=== PATIENT | female | born 1955 | race Caucasian/White ===

== ENCOUNTER 2018-03-15 17:32 | Emergency (ER) | payer BC ==
[2018-03-15 17:52] VITALS: BP 127/88
[2018-03-15] MEDS ORDERED: Penicillin VK TAB* 250 MG PO ONE (18:02)
--- NOTE | 2018-03-15 18:08 | UC ---
Dental HPI - HPI Summary HPI Summary: 62 yo female with worsening dental pain and swelling x 2 days no fever has appt at dental on 03/20 - History of Current Complaint Chief Complaint: UCDentalProblem Stated Complaint: DENTAL PAIN Time Seen by Provider: 03/15/18 17:45 Hx Obtained From: Patient Hx Last Menstrual Period: 2006 Onset/Duration: Gradual Onset, Lasting Days Severity: Moderate Pain Intensity: 6 Pain Scale Used: 0-10 Numeric Aggravating Factor(s): Heat, Cold, Chewing Alleviating Factor(s): Nothing Related History: Previous Dental Care on Same Tooth, Swelling - Allergies/Home Medications Allergies/Adverse Reactions: Allergies Allergy/AdvReac Type Severity Reaction Status Date / Time levofloxacin [From Levaquin] Allergy Altered Verified 03/15/18 17:54 Mental Status Sulfa (Sulfonamide Allergy Altered Verified 03/15/18 17:54 Antibiotics) Mental Status tetracycline Allergy See Comment Verified 03/15/18 17:54 Home Medications: Home Medications Budesonide/Formote 160/4.5(NF) [Symbicort 160/4.5 (NF)] 2 puff INH BID 03/15/18 [History Confirmed 03/15/18] PMH/Surg Hx/FS Hx/Imm Hx Previously Healthy: Yes Respiratory History: COPD - Surgical History Surgical History: Yes Surgery Procedure, Year, and Place: Cholecystectomy. Tubal Ligation. Rectal fissure repair--1984 - Family History Known Family History: Positive: Cardiac Disease, Hypertension, Diabetes - Social History Alcohol Use: None Substance Use Type: None Smoking Status (MU): Current Every Day Smoker Type: Cigarettes Amount Used/How Often: 1 PPD Length of Time of Smoking/Using Tobacco: 40-45 YRS Have You Smoked in the Last Year: Yes Cessation Counseling: Patient Advised to Stop Review of Systems Constitutional: Negative Skin: Negative Eyes: Negative ENT: Dental Pain Respiratory: Negative Cardiovascular: Negative Gastrointestinal: Negative Genitourinary: Negative Motor: Negative Neurovascular: Negative Musculoskeletal: Negative Neurological: Negative Psychological: Negative Is Patient Immunocompromised?: No All Other Systems Reviewed And Are Negative: Yes Physical Exam Triage Information Reviewed: Yes Appearance: Well-Appearing, No Pain Distress, Well-Nourished Vital Signs: Initial Vital Signs Temp 98.8 F 03/15/18 17:50 Pulse 81 03/15/18 17:50 Resp 18 03/15/18 17:50 BP 127/88 03/15/18 17:50 Pulse Ox 99 03/15/18 17:50 Vital Signs Reviewed: Yes Eyes: Positive: Conjunctiva Clear ENT: Negative: Hearing grossly normal, Nasal congestion, Nasal drainage, Trismus , Muffled voice, Hoarse voice Dental: Positive: Gross Decay/Caries @ - mnay teeth rotted to gum line, Other: - abysmal dentition Neck: Positive: Supple, Nontender Respiratory: Positive: Chest non-tender, Lungs clear, Normal breath sounds Cardiovascular: Positive: RRR, No Murmur, Pulses Normal Musculoskeletal: Positive: ROM Intact, No Edema Neurological: Positive: Alert Psychological Exam: Normal Skin Exam: Normal Dental Complaint Course/Dx - Differential Dx/Diagnosis Provider Diagnoses: dental abscess Discharge - Sign-Out/Discharge Documenting (check all that apply): Discharge/Admit/Transfer - Discharge Plan Condition: Stable Disposition: HOME Prescriptions: Penicillin VK 500 MG TAB(NF) [Penicillin VK 500 mg Tab] 500 mg PO QID #28 tab Patient Education Materials: Dental Abscess (ED) Referrals: Maye Barrios MD [Primary Care Provider] - Additional Instructions: tylenol or aleve for pain to er for worsening symptoms see dentist 03/20 as planned - Billing Disposition and Condition Condition: STABLE Disposition: HOME Images Dental: 1 - swollen /tooth rotted to gum line
== END 2018-03-15 18:17 | disposition home or self-care (01) ==
LOC: UCEAST 17:32
DX: K04.7 Periapical abscess without sinus (principal); J44.9 Chronic obstructive pulmonary disease, unspecified; Z88.1 Allergy status to other antibiotic agents; Z88.2 Allergy status to sulfonamides; F17.210 Nicotine dependence, cigarettes, uncomplicated
CPT/HCPCS: 99212; A9270-GY; G0463

== ENCOUNTER 2018-05-15 18:20 | Emergency (ER) | payer BC ==
[2018-05-15 18:34] VITALS: BP 122/86
--- NOTE | 2018-05-15 20:04 | UC ---
Olamide Enamorado Emily, scribed for Heriberto Houser MD on 05/15/18 at 1837 . Throat Pain/Nasal Junaid HPI - HPI Summary HPI Summary: This patient is a 62 year old F presenting to critical access hospital care accompanied by with a chief complaint of sore throat that began 3 days ago. The patient rates the pain 0/10 in severity. Symptoms aggravated by nothing. Symptoms alleviated by nothing. Patient reports productive cough (yellow sputum ) and nasal congestion. Patient denies fever. Allergies reviewed. Medications reviewed. - History of Current Complaint Stated Complaint: SINUS CONGESTION Time Seen by Provider: 05/15/18 18:28 Hx Obtained From: Patient Hx Last Menstrual Period: POST ?: No Onset/Duration: Sudden Onset, Lasting Days, Still Present Severity: Mild Pain Intensity: 0 Pain Scale Used: 0-10 Numeric Cough: Productive Associated Signs & Symptoms: Positive: Other - Positive productive cough ( yellow sputum) and nasal congestion. Negative fever - Allergies/Home Medications Allergies/Adverse Reactions: Allergies Allergy/AdvReac Type Severity Reaction Status Date / Time levofloxacin [From Levaquin] Allergy Altered Verified 05/15/18 18:35 Mental Status Sulfa (Sulfonamide Allergy Altered Verified 05/15/18 18:35 Antibiotics) Mental Status tetracycline Allergy See Comment Verified 05/15/18 18:35 Home Medications: Home Medications Ketorolac 0.5% OPHTH (NF) 1 drop OPHTHALMIC QID 05/15/18 [History Confirmed 01/01] Tobramycin 0.3% OPHTH.LEIGHTON* 1 drop OPHTHALMIC QID 05/15/18 [History Confirmed 01/01] prednisoLONE 1% OPHTH.SUSP* [Pred Forte 1%*] 1 drop .SEE ORDER QID 05/15/18 [ History Confirmed 05/15/18] PMH/Surg Hx/FS Hx/Imm Hx Previously Healthy: No Endocrine History: Other Other Endocrine History: Negative diabetes Respiratory History: COPD - Surgical History Surgical History: Yes Surgery Procedure, Year, and Place: Cholecystectomy. Tubal Ligation. Rectal fissure repair--1984 - Family History Known Family History: Positive: Cardiac Disease, Hypertension, Diabetes - Social History Occupation: Retired Lives: With Family Alcohol Use: None Substance Use Type: None Smoking Status (MU): Current Every Day Smoker Type: Cigarettes Amount Used/How Often: 1 PPD Length of Time of Smoking/Using Tobacco: 40-45 YRS Have You Smoked in the Last Year: Yes Review of Systems Constitutional: Other - Negative fever ENT: Sore Throat, Other - Positive nasal congestion Respiratory: Cough All Other Systems Reviewed And Are Negative: Yes Physical Exam - Summary Physical Exam Summary: General: well-appearing, no pain distress Skin: warm, color reflects adequate perfusion, dry Head: normal Eyes: EOMI, AMANDA ENT: positive rhinorrhea Neck: supple, nontender Respiratory: scattered wheezes, breath sounds present Cardiovascular: RRR Abdomen: soft, nontender Bowel: present Musculoskeletal: normal, strength/ROM intact Neurological: sensory/motor intact, A&O x3 Psychological: affect/mood appropriate Triage Information Reviewed: Yes Vital Signs: Initial Vital Signs Temp 97.1 F 05/15/18 18:26 Pulse 83 05/15/18 18:26 Resp 18 05/15/18 18:26 BP 122/86 05/15/18 18:26 Pulse Ox 95 05/15/18 18:26 Vital Signs Reviewed: Yes Throat Pain/Nasal Course/Dx - Course Course Of Treatment: DUE TO SINUSITIS EXACERBATING THE COPD, WILL TREAT WITH ABX. THE PATIENT ASKED TO BE TREATED WITH PENICILLIN SHE TOLERATES PENICILLIN WELL. I DISCUSSED AUGMENTIN WILL GIVE BROADER BACTERIAL COVERAGE. RX AUGMENTIN. I DISCUSSED PREDNISONE RX FOR THE COPD; THE PATIENT DECLINED. F/U PMD; RECHECK SOONER IF WORSE. - Differential Dx/Diagnosis Provider Diagnoses: SINUSITIS. COPD EXACERBATION Discharge - Sign-Out/Discharge Documenting (check all that apply): Discharge/Admit/Transfer - Discharge Plan Condition: Stable Disposition: HOME Prescriptions: Amoxicillin/Clavulanate TAB* [Augmentin TAB 875*] 875 mg PO BID #20 tab Patient Education Materials: Sinusitis (ED) Referrals: Maye Barrios MD [Primary Care Provider] - Additional Instructions: FOLLOW UP WITH YOUR DOCTOR. GET RECHECKED FOR ANY WORSENING OF YOUR CONDITION OR QUESTIONS OR CONCERNS. - Billing Disposition and Condition Condition: STABLE Disposition: Home The documentation as recorded by the Olamide wei Emily accurately reflects the service I personally performed and the decisions made by me, Heriberto Houser MD.
== END 2018-05-15 18:51 | disposition home or self-care (01) ==
LOC: UCEAST 18:20
DX: J32.9 Chronic sinusitis, unspecified (principal); J44.9 Chronic obstructive pulmonary disease, unspecified; J02.9 Acute pharyngitis, unspecified; F17.210 Nicotine dependence, cigarettes, uncomplicated; Z88.1 Allergy status to other antibiotic agents; Z88.2 Allergy status to sulfonamides
CPT/HCPCS: 99212; G0463

== ENCOUNTER 2019-01-10 11:08 | Emergency (ER) | payer BC ==
--- NOTE | 2019-01-10 13:17 | UC ---
Respiratory Complaint HPI - HPI Summary HPI Summary: 63 y/o female presents to the urgent care c/o nasal congestion w/ body aches, yellowish nasal discharge, productive cough w/ mild wheezing for the past 3 days. Pt reports Hx of COPD. pt states her has been with similar symptoms getting worse for the past 2 weeks. She has been using the inhaler w/o any improvement. She lopez also taken cough drops. Pt has a low grade fever at home the first day. Pain is 3/10. Pt denies SOB, chest pain, abdominal pain, N/V /D. - History of Current Complaint Chief Complaint: UCRespiratory Stated Complaint: URI Time Seen by Provider: 01/10/19 13:14 Hx Obtained From: Patient Hx Last Menstrual Period: POST ?: No Onset/Duration: Gradual Onset, Lasting Days - 3 days, Still Present, Worse Since - mild wheezing since yesterday Timing: Intermittent Episodes Severity Initially: Mild Severity Currently: Moderate Pain Intensity: 4 Pain Scale Used: 0-10 Numeric Character: Cough: Productive, Sputum Description: - yellowish Aggravating Factors: Recumbent Position Alleviating Factors: Bronchodilator Associated Signs And Symptoms: Positive: Chills, Wheezing - mild, URI, Nasal Congestion, Sinus Discomfort. Negative: Dyspnea, Fever - Risk Factors Pulmonary Embolism Risk Factors: Negative Cardiac Risk Factors: Negative Pseudomonas Risk Factors: Negative Tuberculosis Risk Factors: Negative - Allergies/Home Medications Allergies/Adverse Reactions: Allergies Allergy/AdvReac Type Severity Reaction Status Date / Time levofloxacin [From Levaquin] Allergy Altered Verified 01/10/19 11:44 Mental Status Sulfa (Sulfonamide Allergy Altered Verified 01/10/19 11:44 Antibiotics) Mental Status tetracycline AdvReac See Comment Verified 01/10/19 11:44 PMH/Surg Hx/FS Hx/Imm Hx Previously Healthy: Yes Respiratory History: COPD - Surgical History Surgical History: Yes Surgery Procedure, Year, and Place: Cholecystectomy. Tubal Ligation. Rectal fissure repair--1984 - Family History Known Family History: Positive: Cardiac Disease, Hypertension, Diabetes - Social History Occupation: Retired Lives: With Family Alcohol Use: None Substance Use Type: None Smoking Status (MU): Current Every Day Smoker Type: Cigarettes Amount Used/How Often: 1 PPD Length of Time of Smoking/Using Tobacco: 40-45 YRS Have You Smoked in the Last Year: Yes Review of Systems All Other Systems Reviewed And Are Negative: Yes Constitutional: Positive: Negative Skin: Positive: Negative Eyes: Positive: Negative ENT: Positive: Nasal Discharge - yellowish, Sinus Congestion, Sinus Pain/ Tenderness Respiratory: Positive: Cough - productive w/ yellowish phlegm, Other - mild wheezig Cardiovascular: Positive: Negative Gastrointestinal: Positive: Negative Genitourinary: Positive: Negative Motor: Positive: Negative Neurovascular: Positive: Negative Musculoskeletal: Positive: Myalgia Neurological: Positive: Negative Psychological: Positive: Negative Is Patient Immunocompromised?: No Physical Exam - Summary Physical Exam Summary: Vital Signs Reviewed: Yes General: well developed, well nourished female sitting in the examining table w/ o any apparent distress Eyes: Positive: Conjunctiva Clear - PERRLA, EOMI, fundi grossly normal ENT: Positive: Normal ENT inspection, Hearing grossly normal, Pharynx normal, Nasal congestion - edematous and erythematous nasal mucosa, Nasal drainage - yellowish drainage, TMs normal. Negative: Tonsillar swelling, Tonsillar exudate Neck: Positive: Supple, Nontender, No Lymphadenopathy Respiratory: no orthopnea or dyspnea. Able to speak in full sentences, no retractions or accessory muscle use, no tripod position, stridor, or head bobbing. Positive breath sounds bilaterally. mild scattered wheezing and rhonchi in the posterior Rt lung, no crackles or rales. Cardiovascular: Positive: RRR, No Murmur, Pulses Normal, Brisk Capillary Refill Abdomen Description: Positive: Nontender, No Organomegaly, Soft. Negative: CVA Tenderness (R), CVA Tenderness (L) Bowel Sounds: Positive: Present Musculoskeletal Exam: Normal Musculoskeletal: Positive: Strength Intact, ROM Intact, No Edema Neurological Exam: Normal Psychological Exam: Normal Skin Exam: Normal Triage Information Reviewed: Yes Vital Signs: Initial Vital Signs Temp 96.7 F 01/10/19 11:41 Pulse 77 01/10/19 11:41 Resp 16 01/10/19 11:41 BP 116/79 01/10/19 11:41 Pulse Ox 97 01/10/19 11:41 UC Diagnostic Evaluation - Laboratory O2 Sat by Pulse Oximetry: 97 Respiratory Course/Dx - Course Course Of Treatment: 63 y/o female presents to the urgent care c/o nasal congestion w/ body aches, yellowish nasal discharge, productive cough w/ mild wheezing for the past 3 days. Pt reports Hx of COPD. pt states her has been with similar symptoms getting worse for the past 2 weeks. She has been using the inhaler w/o any improvement. She lopez also taken cough drops. Pt has a low grade fever at home the first day. Pain is 3/10. Pt denies SOB, chest pain, abdominal pain, N/V/D. Hx obtained. Pt w/ mild scattered wheezes and rhonchi on posterior Rt lung on examination. O2Sat:97%. Rapid inlfuenza A&B: negative. chest X-ray ordered: Impression: No cardiopulmonary disease observed as per radiologist. Pt given a Duoneb Treatment to alleviate symptoms. Pt tolerated well treatment and lungs improved,and wheezing resolved. Patient prescribed amoxicillin PO and advised to increase fluid intake, rest and eat well. The patient was recommended to increase fluid intake. Take medications as recommended. Pt advised to returned to the clinic or f/u w/ her PCP if symptoms do not improve. All D/C instructions explained. Patient understood and agree w / plan of care. Pt left clinic hemodynamically stable , A&OX3 - Differential Dx/Diagnosis Differential Diagnosis/HQI/PQRI: Asthma, Bronchitis, Exacerbation Of COPD, Influenza, Lower Resp Infection, Sinusitis, Other - pneumonia Provider Diagnosis: COPD exacerbation, Sinusitis Discharge - Sign-Out/Discharge Documenting (check all that apply): Patient Departure - D/C home All imaging exams completed and their final reports reviewed: Yes - Discharge Plan Condition: Stable Disposition: HOME Prescriptions: Amoxicillin PO (*) [Amoxicillin 875 MG (*)] 875 mg PO BID #20 tab Patient Education Materials: Sinusitis (ED), COPD (Chronic Obstructive Pulmonary Disease) (ED) Referrals: Maye Barrios MD [Primary Care Provider] - 2 Days Additional Instructions: 1- Take full course of Antibiotic PO as directed. Please take yogurt w/ probiotic or culturelle to protect your GI system 2-Use the Albuterol nebulizer treatment to alleviate wheezing as directed . Increase fluid intake, rest and eat well. 3- If symptoms do not improve or worsen or your develop SOB with fever and severe wheezing please go immediately to the ER further evaluation and treatment. 4- F/u with your PCP in 3 days for further management on your COPD - Billing Disposition and Condition Condition: STABLE Disposition: Home
[2019-01-10] MEDS ORDERED: Albuterol/Ipratropium NEB.SOL* Albuterol 2.5 MG/Ipratropium 0.5 MG 3 ML INH ONE (13:36)
[2019-01-10 13:53] LABS: Influenza A Molecular NEGATIVE (Negative); Influenza B Molecular NEGATIVE (Negative)
[2019-01-10 14:23] VITALS: BP 123/79
== END 2019-01-10 14:36 | disposition home or self-care (01) ==
LOC: UCEAST 11:08
DX: J44.1 Chronic obstructive pulmonary disease with (acute) exacerbation (principal); J32.9 Chronic sinusitis, unspecified; F17.210 Nicotine dependence, cigarettes, uncomplicated; Z88.1 Allergy status to other antibiotic agents; Z88.2 Allergy status to sulfonamides
CPT/HCPCS: 71046; 99212; A9270-GY; G0463

== ENCOUNTER 2019-09-09 11:43 | Emergency (ER) | payer BC, MEDICARE ==
--- OUTSIDE RECORDS SUMMARY | 2019-09-09 11:49 | XMS REPORT | Continuity of Care Document ---
:1955 External Reference #:[id number] Author Name Adia Barry PA (transmitted by agent of provider Umang Abernathy ) Address [address] [place] [address] Care Team Providers Name Role Phone Maye Barrios MD - Internal Medicine Care Team Information Customer Retention Representative [phone] Problems Description No Information Available Social History Type Date Description Comments Sex Unknown Tobacco Use Start: Unknown currently smokes 1/2 Pack Daily Smoking Status Reviewed: 07/23/19 currently smokes 1/2 Pack Daily ETOH Use Denies alcohol use Tobacco Use Start: Unknown Heavy tobacco smoker (more than 10 cigarettes/day) Recreational Drug Use Denies Drug Use Exercise Type/Frequency Exercises sporadically Allergies, Adverse Reactions, Alerts Active Allergies Reaction Severity Comments Date Sulfa Drugs 05/23/2017 Tetracycline 05/23/2017 Medications Active Medications SIG Qnty Indications Ordering Date Provider Amoxicillin/Clavulanat 1 by mouth every 20tabs J01.90 Josemanuel, 08/2019 e Potassium 12 hours for 10 MD Umang 875-125mg days. Tablets Oxygen oxygen J44.9 Arnol eBnson MD 07/26/2018 concentrator. use oxygen 2 l/min via nasal cannula at night. Albuterol Sulfate 1 vial inhaled 270ml Arnol Benson MD 01/18/2018 every 4 hours as 1.25mg/3ML Nebulizer needed for shortness of breath and or wheezing Symbicort 2 puff twice a 30.6gm J44.1 Arnol Benson MD 01/18/2018 160-4.5mcg/Act day Aerosol Spiriva Respimat take 2 puffs once Unknown daily. 2.5mcg/Act Aerosol Proair HFA take 2 puffs Unknown 108(90Base) every 6 hours as mcg/Act Aerosol needed for shortness of breath. Levothyroxine Sodium 1 by mouth every 30tabs Unknown day 50mcg Tablets Immunizations Description No Information Available Vital Signs Date Vital Result Comment 07/24/2019 2:30pm BP Systolic Sitting Left Arm 112 mmHg BP Diastolic Sitting Left Arm 78 mmHg Heart Rate 86 /min Respiratory Rate 18 /min Height 63.5 inches 5'3.50" Weight 173.00 lb BMI (Body Mass Index) 30.2 kg/m2 BSA (Body Surface Area) 1.83 m2 [place] body weight in kilograms 53 kg O2 % BldC Oximetry 94 % 01/15/2019 2:54pm BP Systolic Sitting Right Arm 123 mmHg BP Diastolic Sitting Right Arm 86 mmHg Heart Rate 80 /min Respiratory Rate 16 /min Height 63.5 inches 5'3.50" Weight 173.00 lb BMI (Body Mass Index) 30.2 kg/m2 BSA (Body Surface Area) 1.83 m2 [place] body weight in kilograms 53 kg O2 % BldC Oximetry 92 % Ra Results Description No Information Available Procedures Description No Information Available Medical Devices Description No Information Available Encounters Type Date Location Provider Dx Diagnosis Office Visit 07/24/2019 Pulmonology Adia Barry PA J44.9 Chronic obstructive 2:20p pulmonary disease, unspecified R09.02 Hypoxemia F17.210 Nicotine dependence, cigarettes, uncomplicated 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, bronchus and lung J01.90 Acute sinusitis, unspecified Z71.6 Tobacco abuse counseling Assessments Date Code Description Provider 07/24/2019 J44.9 Chronic obstructive pulmonary disease, Adia Barry PA unspecified 07/24/2019 R09.02 Hypoxemia Adia Barry PA 07/24/2019 F17.210 Nicotine dependence, cigarettes, uncomplicated Adia Barry PA 07/24/2019 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 Avoid pollution, fumes and second hand smoke.Drink at least 10 glasses fluid daily. Is there anything I can do on my own to feel better? ?? Yes. If you smoke, stop. This is the most important thing you can do for your chronic bronchitis or COPD. It does not matter how long you have smoked or how much you smoke. Quitting will slow your disease and help you feel better.You should also get the flu shot every fall and the pneumonia vaccine at least once. Infections like the flu and pneumonia can hurt your lungs. It's important to try to prevent them.Follow up:3 months after PFTR09.02 HypoxemiaComments:Please use the oxygen 2L every night, all night.F17.210 Nicotine dependence, cigarettes, uncomplicatedComments:Patient counseled regarding smoking cessation. Discussed risks of cancer, heart attacks , and strokes associated with tobacco use. Please call your [facility] QUIT line and set a quit date.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, bronchus and lungComments:We will repeat a low dose chest CT in 01/2020.J01.90 Acute sinusitis, unspecifiedNew Medication:Amoxicillin/Clavulanate Potassium 875-125 mg - 1 by mouth every 12 hours for 10 days.Comments:Please take Augmentin twice a day for ten days for a sinus infection. Take a yogurt every day to avoid yeast infection and loose stools.Z71.6 Tobacco abuse counseling Goals 07/24/2019 - Adia Barry PAJ44.9 Chronic obstructive pulmonary disease, unspecifiedMaintain activity level despite shortness of breath. Improve exercise capacity. Reduce frequency andseverity of exacerbations(flare-ups). Prolong survival and improve quality of life. Functional Status Description No Information Available Mental Status Description No Information Available Referrals Description No Information Available
[2019-09-09 11:55] VITALS: BP 126/87
--- NOTE | 2019-09-09 12:07 | UC ---
Dental HPI - HPI Summary HPI Summary: hAS HAD A BROKEN FRONT TOOTH X1 YR AND FEELS FOR PAST MO. HAS HAD INTERMITTENT PAIN. ABLE TO EAT FOOD BUT W/ PAIN. USES OTC MEDS FOR PAIN RELIEF. NOTHING MAKES IT BETTER BUT CERTAIN FOODS MAKE IT PAIN WORSE. DENIES FEVER, LOCK JAW, ROMERO. ALSO C/O SINUS DRAINAGE X 1 WK W/ SICK CONTACTS AT HOME. DOES HAVE TOOTH PAIN BUT UNRELATED. - History of Current Complaint Chief Complaint: UCDentalProblem Stated Complaint: DENTAL CONCERN Time Seen by Provider: 09/09/19 12:01 Hx Obtained From: Patient Hx Last Menstrual Period: POST ?: No Pain Intensity: 8 Pain Scale Used: 0-10 Numeric Aggravating Factor(s): Chewing Alleviating Factor(s): OTC Meds Related History: Previous Dental Care on Same Tooth - Allergies/Home Medications Allergies/Adverse Reactions: Allergies Allergy/AdvReac Type Severity Reaction Status Date / Time levofloxacin [From Levaquin] Allergy Altered Verified 09/09/19 11:50 Mental Status Sulfa (Sulfonamide Allergy Altered Verified 09/09/19 11:50 Antibiotics) Mental Status tetracycline AdvReac See Comment Verified 09/09/19 11:50 Home Medications: Home Medications Levothyroxine TAB* [Synthroid TAB*] 50 mcg PO DAILY 09/09/19 [History Confirmed 09/09/19] PMH/Surg Hx/FS Hx/Imm Hx Previously Healthy: Yes Endocrine History: Thyroid Disease Respiratory History: COPD - Surgical History Surgical History: Yes Surgery Procedure, Year, and Place: Cholecystectomy. Tubal Ligation. Rectal fissure repair--1984 - Family History Known Family History: Positive: Cardiac Disease, Hypertension, Diabetes - Social History Alcohol Use: None Substance Use Type: None Smoking Status (MU): Heavy Every Day Tobacco Smoker Type: Cigarettes Amount Used/How Often: 10-12 cigarettes Length of Time of Smoking/Using Tobacco: 40-45 YRS Have You Smoked in the Last Year: Yes Review of Systems All Other Systems Reviewed And Are Negative: Yes Constitutional: Negative: Fever Skin: Negative: Rash ENT: Positive: Dental Pain, Ear Ache, Sinus Congestion, Sinus Pain/Tenderness. Negative: Sore Throat Respiratory: Negative: Shortness Of Breath, Cough Cardiovascular: Positive: Negative Neurological: Negative: Headache Physical Exam Triage Information Reviewed: Yes Appearance: Well-Appearing Vital Signs: Initial Vital Signs Temp 97.6 F 09/09/19 11:51 Pulse 95 09/09/19 11:51 Resp 15 09/09/19 11:51 BP 126/87 09/09/19 11:51 Pulse Ox 97 09/09/19 11:51 Vital Signs Reviewed: Yes Eyes: Positive: Conjunctiva Clear ENT: Positive: Pharynx normal, TMs normal, Uvula midline. Negative: Sinus tenderness Dental: Positive: Gross Decay/Caries @ - THROUGHOUT., Other: - +POOR DENTITION, FRONT UPPER TOOTH BASE STILL IN SOCKET BUT GUMS INFLAMMED AROUND IT W/ SOME TENDERNESS. NO TRISMUS Neck: Positive: Supple, Nontender, No Lymphadenopathy Respiratory Exam: Normal Cardiovascular Exam: Normal Dental Complaint Course/Dx - Course Course Of Treatment: HX OF FRONT UPPER TOOTH THAT WAS FRACTURED OVER A YR. AGO W/ 1 MO. OF INTERMITTENT PAIN. WILL TX W/ ANTIBX BUT STRONGLY ENCOURAGED SEEING DENTAL SURGEON ABSCESS IS LIKELY FORMING. NO TRISMUS ON EXAM AND AFEBRILE. NSAIDS FOR PAIN. ALSO HAS ACUTE VIRAL SINUSITIS AND WE REVIEWED WAYS TO MANAGE THIS. SHE IS AFEBRILE. VITALS GOOD. - Differential Dx/Diagnosis Differential Diagnosis/Dx: Dental Abscess, Dental Caries, Fractured Tooth Provider Diagnosis: Dental abscess, Viral sinusitis, Fractured tooth Discharge ED - Sign-Out/Discharge Documenting (check all that apply): Patient Departure All imaging exams completed and their final reports reviewed: No Studies - Discharge Plan Condition: Good Disposition: HOME Prescriptions: Ibuprofen [Ibu] 600 mg PO TID 30 Days #90 tablet Penicillin VK TAB* [Penicillin VK 250 mg Tab*] 500 mg PO BID 10 Days #20 tab Patient Education Materials: Dental Abscess (ED) Referrals: Maye Barrios MD [Primary Care Provider] - Additional Instructions: Please use your inhalers for your lungs/COPD. Please make appt as soon as possible with dental/oral surgeon: SERGIO [facility] [place] [phone] - Billing Disposition and Condition Condition: GOOD Disposition: Home
== END 2019-09-09 12:26 | disposition home or self-care (01) ==
LOC: UCCORT 11:43
DX: S02.5XXA Fracture of tooth (traumatic), initial encounter for closed fracture (principal); K04.7 Periapical abscess without sinus; J32.9 Chronic sinusitis, unspecified; B97.89 Other viral agents as the cause of diseases classified elsewhere; Z88.8 Allergy status to other drugs, medicaments and biological substances; J44.9 Chronic obstructive pulmonary disease, unspecified; F17.210 Nicotine dependence, cigarettes, uncomplicated; Z88.2 Allergy status to sulfonamides; Z88.1 Allergy status to other antibiotic agents; X58.XXXA Exposure to other specified factors, initial encounter; Y92.9 Unspecified place or not applicable
CPT/HCPCS: 99212; G0463

== ENCOUNTER 2020-01-13 10:00 | Emergency (ER) | payer MEDICARE ==
[2020-01-13 10:27] VITALS: BP 134/77
--- NOTE | 2020-01-13 11:03 | UC ---
Throat Pain/Nasal Junaid HPI - HPI Summary HPI Summary: Pt presents with c/o fever, chills, body aches, cough, wheezing, sob, nasal congestion, sinus pressure and pain X 3 days. - History of Current Complaint Chief Complaint: UCRespiratory Stated Complaint: EAR PAIN, SINUS PRESSURE, COUGH Time Seen by Provider: 01/13/20 10:50 Hx Obtained From: Patient Hx Last Menstrual Period: POST ?: No Onset/Duration: Gradual Onset, Lasting Days, Still Present Severity: Moderate Pain Intensity: 0 Cough: Sputum Appears - green/yellow Associated Signs & Symptoms: Positive: Dysphagia, Wheezing, Sinus Discomfort, Nasal Discharge, Fever Related History: Smoking - Epiglottits Risk Factors Epiglottis Risk Factors: Negative - Allergies/Home Medications Allergies/Adverse Reactions: Allergies Allergy/AdvReac Type Severity Reaction Status Date / Time levofloxacin [From Levaquin] Allergy Altered Verified 01/13/20 10:24 Mental Status Sulfa (Sulfonamide Allergy Altered Verified 01/13/20 10:24 Antibiotics) Mental Status tetracycline AdvReac See Comment Verified 01/13/20 10:24 Home Medications: Home Medications Albuterol 2.5MG/3ML (0.083%)* [Ventolin 2.5 MG/3 ML NEB.LEIGHTON*] 2.5 mg NEB Q6H PRN 08/29/12 [History Confirmed 01/13/20] Budesonide/Formote 160/4.5(NF) [Symbicort 160/4.5 (NF)] 2 puff INH BID 03/15/18 [History Confirmed 01/13/20] Levothyroxine TAB* [Synthroid TAB*] 50 mcg PO DAILY 09/09/19 [History Confirmed 01/13/20] Amoxicillin PO (*) [Amoxicillin 875 MG (*)] 875 mg PO Q12H #20 tab 01/13/20 [Rx] Guaifenesin/Pseudoephedrne HCl [Mucinex D ER 600-60 mg Tablet] 1 each PO Q12H # 14 tab.er.12h 01/13/20 [Rx] Omeprazole CAP (NF) [Prilosec CAP* 20 MG] 20 mg DAILY 01/13/20 [History Confirmed 01/13/20] predniSONE 10 mg TAB [Deltasone 10 MG TAB*] 30 mg PO DAILY #12 tab 01/13/20 [Rx] PMH/Surg Hx/FS Hx/Imm Hx Previously Healthy: Yes Endocrine History: Thyroid Disease GI/ History: Gastroesophageal Reflux - Surgical History Surgical History: Yes Surgery Procedure, Year, and Place: Cholecystectomy. Tubal Ligation. Rectal fissure repair--1984 - Family History Known Family History: Positive: Cardiac Disease, Hypertension, Diabetes - Social History Occupation: Retired Lives: With Family Alcohol Use: Occasionally Substance Use Type: None Smoking Status (MU): Heavy Every Day Tobacco Smoker Type: Cigarettes Amount Used/How Often: 1 PPD Length of Time of Smoking/Using Tobacco: 40-45 YRS Have You Smoked in the Last Year: Yes - Immunization History Vaccination Up to Date: No Review of Systems All Other Systems Reviewed And Are Negative: Yes Constitutional: Positive: Fever, Chills, Fatigue Skin: Positive: Negative Eyes: Positive: Negative ENT: Positive: Sinus Congestion, Sinus Pain/Tenderness Respiratory: Positive: Shortness Of Breath, Cough, Other - wheezing Cardiovascular: Positive: Negative Gastrointestinal: Positive: Negative Genitourinary: Positive: Negative Motor: Positive: Negative Neurovascular: Positive: Negative Musculoskeletal: Positive: Myalgia Neurological/Mental Status: Positive: Negative Psychological: Positive: Negative Is Patient Immunocompromised?: No Physical Exam Triage Information Reviewed: Yes Appearance: Ill-Appearing Vital Signs: Initial Vital Signs Temp 97.5 F 01/13/20 10:24 Pulse 100 01/13/20 10:24 Resp 16 01/13/20 10:24 BP 134/77 01/13/20 10:24 Pulse Ox 96 01/13/20 10:24 Vital Signs Reviewed: Yes Eye Exam: Normal ENT: Positive: Nasal congestion, Sinus tenderness Dental Exam: Normal Neck exam: Normal Respiratory: Positive: Wheezing Cardiovascular: Positive: Tachycardia Musculoskeletal Exam: Normal Neurological Exam: Normal Psychological Exam: Normal Skin Exam: Normal Throat Pain/Nasal Course/Dx - Differential Dx/Diagnosis Differential Diagnosis/HQI/PQRI: Influenza, Sinusitis, URI Provider Diagnosis: Sinusitis Discharge ED - Sign-Out/Discharge Documenting (check all that apply): Patient Departure All imaging exams completed and their final reports reviewed: No Studies - Discharge Plan Condition: Stable Disposition: HOME Prescriptions: Amoxicillin PO (*) [Amoxicillin 875 MG (*)] 875 mg PO Q12H #20 tab Guaifenesin/Pseudoephedrne HCl [Mucinex D ER 600-60 mg Tablet] 1 each PO Q12H # 14 tab.er.12h predniSONE 10 mg TAB [Deltasone 10 MG TAB*] 30 mg PO DAILY #12 tab Patient Education Materials: Sinusitis (ED) Referrals: Adia Barry PA [Primary Care Provider] - If Needed - Billing Disposition and Condition Condition: STABLE Disposition: Home
== END 2020-01-13 11:13 | disposition home or self-care (01) ==
LOC: UCCORT 10:00
DX: J32.9 Chronic sinusitis, unspecified (principal); R00.0 Tachycardia, unspecified; M79.10 Myalgia, unspecified site; R50.9 Fever, unspecified; R06.02 Shortness of breath; R06.2 Wheezing; F17.210 Nicotine dependence, cigarettes, uncomplicated; K21.9 Gastro-esophageal reflux disease without esophagitis; E07.9 Disorder of thyroid, unspecified; Z79.899 Other long term (current) drug therapy; Z88.2 Allergy status to sulfonamides; Z88.1 Allergy status to other antibiotic agents
CPT/HCPCS: 99212; G0463